=== PATIENT | female | born 1990 | race Caucasian/White ===

== ENCOUNTER 2018-10-06 07:58 | Day surgery (SDC) | payer BC ==
[2018-10-05 15:04] LABS: BASOPHILS % (AUTO) 0.5 % (0-1); EOSINOPHILS # (AUTO) 0.1 X10'3 (0-0.9); EOSINOPHILS % (AUTO) 1.9 % (0-6); LYMPHOCYTES # (AUTO) 2.2 X10'3 (1.1-4.8); LYMPHOCYTES % (AUTO) 34.1 % (21-51); MEAN CORPUSCULAR HEMOGLOBIN 30.5 PG (27.0-31.0); MEAN CORPUSCULAR HGB CONC 35.1 g/dL (33.0-36.5); MEAN CORPUSCULAR VOLUME 86.9 FL (78-98); MEAN PLATELET VOLUME 8.2 FL (7.4-10.4); MONOCYTES # (AUTO) 0.4 X10'3 (0-0.9); NEUTROPHILS # (AUTO) 3.6 X10'3 (1.8-7.7); NEUTROPHILS % (AUTO) 56.5 % (42-75); PRE OP HEMOGLOBIN 15.1 g/dL (12.0-16.0); PRE OP PLATELET COUNT 236 X10'3 (140-440); RED BLOOD COUNT 4.94 X10'6 (4.20-5.60)
[2018-10-05 15:14] LABS: HCG SERUM QL NEGATIVE
[2018-10-05 15:17] LABS: ANION GAP 5 (8-16); BLOOD UREA NITROGEN 13 MG/DL (7-18); BUN/CREATININE RATIO 17.6 (6.6-38.0); CALCIUM 9.3 MG/DL (8.5-10.1); CHLORIDE 104 MMOL/L (99-107); CREATININE 0.74 MG/DL (0.40-0.90); GLUCOSE 93 MG/DL (70-104); POTASSIUM 3.6 MMOL/L (3.5-5.1); SODIUM 140 MMOL/L (135-145); TOTAL CARBON DIOXIDE 30.7 MMOL/L (24-32); eGFR > 90 ML/MIN
[~2018-10-06] VITALS: Ht 152.4 cm; Wt 80.7 kg
[2018-10-06] VITALS (8 sets, daily range): BP systolic 91–111; BP diastolic 51–68
[~2018-10-06 07:58] MED LIST: ALBU6.7H INH; famotidine 20mg tablet PO ONE; ringers solution, lacted 1,000 ML IV SCH
[2018-10-06] MEDS ORDERED: fentaNYL/PF 50MCG/1 ML 2ML syringe ONE ×2 (10:17→10:53)
[2018-10-06] MEDS ORDERED: sevoflurane 250ml liquid IH ONE (10:18)
[2018-10-06] MEDS ORDERED: sugammadex 200mg/2ml injection IV ONE (10:18)
[2018-10-06] MEDS ORDERED: midazolam 2 mg/2 ml injection ONE (10:18)
[2018-10-06] MEDS ORDERED: meperidine/PF 25mg/ml syringe IV PRN ×6 (10:35→10:40)
[2018-10-06] MEDS ORDERED: ringers solution, lacted 1,000 ML IV SCH ×2 (10:35→10:39)
[2018-10-06] MEDS ORDERED: proCHLORperazine 10 MG/2 ml inj IV PRN ×2 (10:35→10:40)
[2018-10-06] MEDS ORDERED: morphine 4 MG/ML inj SYRINge IV PRN ×4 (10:35→10:40)
[2018-10-06] MEDS ORDERED: ondansetron/PF 4mg/2ml inj IV PRN ×2 (10:35→10:40)
--- NOTE | 2018-10-06 10:57 | NUR ---
Received from OR via PENG, accompanied by Anesthesiologist DR LAGUERRE and report given by Anesthesiologist. PT DROWSY BUT APPROPRIATE, UMBILICAL LAP SITE W/BANDAID CDI, NAHUN PAD IN PLACE CDI. PT COUGHING, THROAT IRRITATED, NEBULIZER TX WOODROW, RT HERE. Addendum: 10/06/18 at 1132 by Ruma Frazier RN Amended: Links added.
[2018-10-06] MEDS ORDERED: ipratropium/albuterol 3ml nebule NEB PRN (11:00)
[2018-10-06] MEDS ORDERED: dexamethasone sod phosphate 4mg/ml inj. ONE (11:06)
[2018-10-06] MEDS ORDERED: albuterol 60 PUFF/8GM Inhaler IH ONE (11:06)
[2018-10-06] MEDS ORDERED: LIDOcaine 2% (20mg/ml) 5ml vial ONE (11:06)
[2018-10-06] MEDS ORDERED: rocuronium 10mg/ml inj IV ONE (11:06)
[2018-10-06] MEDS ORDERED: propofol inj 20 ML IV ONE (11:06)
[2018-10-06] MEDS ORDERED: ketorolac trometh. 30mg/ml inj. IV ONE (11:45)
== END 2018-10-06 12:07 | disposition home or self-care (01) ==
LOC: PAS 07:58
PROVIDERS: ATTEND Obstetrics & Gynecology
DX: Z30.2 Encounter for sterilization (principal); E66.9 Obesity, unspecified; Z98.890 Other specified postprocedural states; Z87.891 Personal history of nicotine dependence; Z87.01 Personal history of pneumonia (recurrent)
CPT/HCPCS: 36415; 58670; 80048; 82948; 84703; 85025; 94640; 94760; C9399; J1100; J1885; J2001; J2250; J2704; J3010; J7120; A7000

== ENCOUNTER → 2023-10-11 | Outpatient (CLI) | payer BC ==
[~2023-10-11] MED LIST changes: -ALBU6.7H INH; +ALBU6.7H14 INH; -famotidine 20mg tablet PO ONE; -ringers solution, lacted 1,000 ML IV SCH
== END | disposition home or self-care (01) ==
LOC: RAD 13:17
PROVIDERS: ATTEND Nurse Practitioner Primary Care
DX: Z87.01 Personal history of pneumonia (recurrent) (principal)
CPT/HCPCS: 71046